=== PATIENT | female | born 1945 | race Caucasian/White ===

== ENCOUNTER 2016-09-29 12:53 | Emergency (ER) | payer MEDICARE, OTHER ==
[~2016-09-29] VITALS: Ht 167.6 cm; Wt 111.4 kg
[~2016-09-29 12:53] MED LIST: ALBU8.5H2 INHALATION; FLUT16SP NS; PRIM50TA PO; PRV40T PO; SERT25TA2 PO; TRAZ-118 PO
[2016-09-29 13:19] VITALS: BP 142/76; PULSE 66; RESP 15; O2SAT 95
--- NOTE | 2016-09-29 16:15 | ED.REPORT ---
HPI-Extremity Problem Lower Date of Service Sep 29, 2016 ED Provider: Zheng Rodriguez MD 71 y/o female with a hx of COPD and asthma presents to the ED complaining of bilateral posterior calf pain, worse on the right onset 1 week ago. She reports similar pain to the left lateral calf. Her pain is exacerbated by walking. There has been no trauma to her legs. She wears leg compression stockings to prevent extremity swelling. Pt denies chest pain, SOB, fever and chills. She is currently taking NSAID medication for her legs without much relief. She takes no hormone-based medications, has no history of PE or DVT, history of cancer, recent immobilization. She has discussed the pain with her PCP and was advised to apply a hot pack to her legs. Nursing Notes Stated Complaint: POSSIBLE BLOOD CLOT IN RIGHT LEG Chief Complaint: Extremity Trauma Nursing Notes Reviewed: Yes Allergies: Coded Allergies: latex (Verified Allergy, Intermediate, Rash, 09/29/16) Sulfa (Sulfonamide Antibiotics) (Verified Allergy, Unknown, 09/29/16) Scheduled Fluticasone Propionate (Fluticasone Propionate Nasal) 16 Gm Gulliver.susp 2 SPRAY NS BID Pravastatin (Pravachol) 40 Mg Tablet 40 MG PO HS Primidone (Primidone) 50 Mg Tablet 200 MG PO HS Sertraline HCl (Zoloft) 25 Mg Tablet 30 MG PO DAILY Trazodone (Trazodone) 100 Mg Tablet 200 MG PO HS Scheduled PRN Albuterol HFA (Proair HFA) 8.5 Gm Hfa.aer.ad 2 PUFFS INHALATION Q4H PRN PRN For Shortness of Breath General Time Seen by MD: 16:14 Chief Complaint Other (Bilateral leg pain) Hx Obtained From: Patient Arrived By: Walk-in Onset Occurred: 1 week ago Symptom Duration: Since onset Location: : Leg left: Leg right Quality: Painful Severity: Current: Moderate Severity: Maximum: Moderate Exacerbated by: Movement Recent Healthcare: Recent doctor visit Risk-Extremity Prob Lower Well's Criteria for DVT Well's DVT Score: 0 pts (low risk 5%) Past Medical History Past Medical History COPD Asthma Right carpal tunnel Left cervical toricollis Past Surgical History Vein stripping Tubal ligation Right carpal tunnel Smoking History Former Smoker Ambulatory Status Independent Review of Systems Constitutional: Denies: Chills, Fever Musculoskeletal: Reports: Extremity pain Complete sys rev & neg: except as marked. Respiratory: Denies: Shortness of breath Cardiovascular: Denies: Chest pain, Edema Physical Exam Initial Vital Signs Vital Signs (First) Date Time Temp Pulse Resp B/P Pulse Ox O2 Delivery O2 Flow Rate FiO2 09/29/16 13:19 36.4 66 15 142/76 95 Room Air Initial VS: Reviewed, Vital signs normal Head / Eyes: Atraumatic, Normocephalic, PERRL ENT: Mucous membranes moist, Conjunctiva normal, No scleral icterus Neck: Supple, Full range of motion Respiratory: Breath sounds normal, Clear to auscultation, No respiratory distress Cardiovascular: Regular rate & rhythm, Heart sounds normal, Intact distal pulses Abdomen / GI: Soft, Non-tender, No guarding, No rebound, No distention Upper Extremities: Vascular intact, Neuro intact, No swelling, No tenderness Skin: Warm, Dry, No cyanosis Neurologic: Alert, Oriented, Nonfocal Psychiatric: Mood/affect normal, Behavior normal, Normal thought content Lower Extremity / Pelvis / MS: Atraumatic, Full range of motion, No swelling, No erythema, No deformity, Neurologic intact, Vascular intact, No compartment syndrome Posterior right calf tenderness to palpation No mass Ankle / Foot: Atraumatic, Full range of motion, No swelling, No erythema, Non- tender, No deformity, Neurologic intact, Vascular intact, No compartment syndrome Interpretation & Diagnostics US Focused Lower Ext Venous IMPRESSION: No deep venous thrombosis identified within the right lower extremity. Dictated by: Arnulfo SIEGEL Interpreted: Ira Chandler MD on 09/29/2016 at 17:04 Transcribed by: CRISTAL on 09/29/2016 at 17:04 Exam Performed by: Allied health pract Exam Interpreted by: Radiologist Re-Eval/Medical Decision Med Decision/Clinical Course Right lower extremity pain is the chief complaint but there is no swelling, deformity, decreased pulse or evidence of DVT. I think outpatient follow-up is appropriate this point. Source of Hx: Old records Re-Evaluation/Progress : Time of Eval: 17:00 Re-Evaluation/Progress Note: Pt rechecked. Discussed US results and diagnosis. Informed the pt of the plan to discharge. Pt understands and agrees with plan. F/U instructions and RTER warning given. All questions addressed. Counseled Regarding: Diagnosis, Need for follow-up, When/why to return to ED Discharge & Departure Impression: Primary Impression: Right leg pain Disposition: Home Discharge Condition All VS Reviewed: Yes Condition: Stable Additional Instructions: Your US was negative for DVT. No evidence of infection, fracture, decreased arterial or venous flow or blood clot was found in your right leg. I recommend Tylenol or ibuprofen as needed for pain. I recommend follow-up with Dr. Cuadra in the coming week or 2 for further evaluation as needed. I recommend regular activity. Follow up with your Primary Care Physician for further evaluation as needed. Return to the Emergency Department in case of increased difficulty walking due to pain, fever or any new or worsening symptoms. Referrals: Erin Cho MD (PCP) Scribe Attestation Portions of this note were transcribed by Ryan Ash and Adalid Pereira. I, Dr. Rodriguez personally performed the history, physical exam and medical decision-making;I reviewed and confirmed the accuracy of the information in the transcribed note. Signed by Ryan Ash and Adalid Pereira, Gricelda. 09/29/16 [id number] copies to: Erin Cho MD, Kirk H MD Sep 29, 2016 16:15 Ryan Ash Sep 29, 2016 16:27 ADALID PEREIRA Sep 29, 2016 17:05
--- NOTE | 2016-09-29 17:05 | DRSVH ---
PROCEDURE: US VEINOUS LEG DUPLEX UNILATERAL, RIGHT INDICATIONS: right leg pain TECHNIQUE: Real-time imaging, as well as color and pulse Doppler interrogation, were performed of the lower extr emity deep veins from the inguinal ligament to the popliteal fossa. COMPARISON: None. FINDINGS: The deep veins are normally compressible, and free of intraluminal thrombus. Color and pu lse Doppler demonstrate normal phasic intraluminal flow. There is normal augmentation response to di stal compression maneuver. IMPRESSION: No deep venous thrombosis identified within the right lower extremity. Dictated by: Arnulfo Marie [facility] Interpreted: Ira Chandler MD on 09/29/2016 at 17:04 Transcribed by: CRISTAL on 09/29/2016 at 17:04 Approved by: Ira Chandler MD, PhD on 10/03/2016 at 20:47
== END 2016-09-29 17:17 | disposition home or self-care (01) ==
LOC: SED 12:53
DX: M79.661 Pain in right lower leg (principal); M79.662 Pain in left lower leg; J44.9 Chronic obstructive pulmonary disease, unspecified; Z87.891 Personal history of nicotine dependence; Z88.2 Allergy status to sulfonamides; Z91.040 Latex allergy status